=== PATIENT | female | born 1980 | race African-American/Black ===

== ENCOUNTER 2017-08-20 16:14 | Emergency (ER) | payer SELFPAY ==
[2017-08-20 16:44] LABS: #Basophils 0.1 thou/uL (0.0-0.2); #Eosinphils 0.3 thou/uL (0.0-0.7); #Lymphocytes 2.7 thou/uL (1.20-3.40); #Monocytes 0.8 thou/uL (0.11-0.59); #Neutrophils 3.2 thou/uL (1.40-6.50); %Basophils 1.9 % (0.0-1.0); %Eosinophils 4.4 % (0.0-10.0); %Monocytes 11.3 % (0.0-10.0); %Neutrophils 44.4 % (42.0-75.0); Hemoglobin 9.9 g/dL (12.0-16.0); Mean Corpuscular HGB CONC 31.4 g/dL (32.0-36.0); Mean Corpuscular Hemoglobin 27.1 pg (27.0-31.0); Mean Corpuscular Volume 86.3 fl (81.0-99.0); Mean Platelet Volume 7.8 fL (7.4-10.4); Platelet Count 290 thou/uL (130-400); RBC Distribution Width 16.8 % (11.5-14.5); Red Blood Cell (RBC) Count 3.65 mill/uL (4.20-5.40); White Blood Cell (WBC) Count 7.2 thou/uL (4.8-10.8)
[2017-08-20 17:02] LABS: BHCG - Serum Negative (NEGATIVE); Pregs Control Background? CLEAR/WHITE (CLR/WHITE); Pregs Control Bar Appear? YES (CONTROL BAR)
[2017-08-20 17:05] LABS: ALT (SGPT) 7 U/L (8-55); AST (SGOT) 9 U/L (5-34); Albumin 3.9 g/dL (3.5-5.0); Alkaline Phosphatase 46 U/L (40-150); Anion Gap 11 mmol/L (10-20); BUN (Urea Nitrogen) 6 mg/dL (7.0-18.7); Bilirubin, Total 0.4 mg/dL (0.2-1.2); Calc. Creatinine Clearance 0 mL/min (70-130); Calcium 8.8 mg/dL (7.8-10.44); Carbon Dioxide 23 mmol/L (22-29); Chloride 109 mmol/L (98-107); Estimated GFR-MDRD Greater than 90; Globulin 2.8 g/dL (2.4-3.5); Glucose 79 mg/dL (70-105); Potassium 3.5 mmol/L (3.5-5.1); Protein, Total 6.7 g/dL (6.0-8.3); Sodium 139 mmol/L (136-145)
[2017-08-20 17:09] LABS: Bilirubin Negative (Negative); Blood, Urine Negative (Negative); Clarity CLEAR (Clear); Glucose, Urine (Dipstick) Negative (Negative); Leukocyte Small (Negative); Nitrite Negative (Negative); Protein, Urine (Dipstick) Negative (Neg-Trace); Specific Gravity, Urine 1.007 (1.002-1.036); Urobilinogen 0.2 mg/dL (0.2-1.0); pH, Urine 6.5 (5.0-9.0)
[2017-08-20] MEDS ORDERED: Ondansetron HCl/PF 4 MG/2 ML Vial ONE (17:17)
[2017-08-20] MEDS ORDERED: Ketorolac Tromethamine 30 MG/ML VIAL ONE (17:17)
[2017-08-20 17:28] LABS: Bacteria/HPF None Seen HPF (None Seen); Hyaline Casts/LPF NONE SEEN LPF (0-3 Hyaline); RBC/HPF None Seen HPF (0-3); Squamous Epithelial None Seen HPF (0-3); WBC/HPF 0-3 HPF (0-3)
[2017-08-20 19:07] LABS: Medtox Reader # READER 1
[2017-08-20 19:08] LABS: Amphetamine Not Detected (NotDetected); Barbiturates Screen Not Detected (NotDetected); Benzodiazepine Screen Detected (NotDetected); Cocaine Metabolite Screen Not Detected (NotDetected); Medtox Control Line Valid? VALID (VALID); Methadone Not Detected (NotDetected); Methamphetamine Not Detected (NotDetected); Opiate Screen Not Detected (NotDetected); Oxycodone Screen Not Detected (NotDetected); Phencyclidine (PCP) Not Detected (NotDetected); THC/Cannabinoid Screen Detected (NotDetected); Tricyclic Screen Detected (NotDetected)
[2017-08-20] MEDS ORDERED: Dexamethasone 4 mg/ml Vial ONE (19:20)
== END 2017-08-20 20:16 | disposition home or self-care (01) ==
LOC: ERS 16:14
DX: J06.9 Acute upper respiratory infection, unspecified (principal); J45.909 Unspecified asthma, uncomplicated
CPT/HCPCS: 36415; 80053; 80306; 81003; 81015; 84703; 85025; 87804; 93005; 96361; 96374; 96375; J1100; J1885; J2405

== ENCOUNTER 2017-09-07 19:51 | Emergency (ER) | payer SELFPAY | END 2017-09-07 19:58 | disposition left against medical advice (07) | LOC: ERS 19:51 | DX: Z53.21 Procedure and treatment not carried out due to patient leaving prior to being seen by health care provider (principal) ==

== ENCOUNTER 2017-09-07 20:21 | Emergency (ER) | payer SELFPAY ==
[2017-09-07] MEDS ORDERED: Ketorolac Tromethamine 30 MG/ML VIAL ONE ×2 (20:54→21:26)
[2017-09-07 20:56] LABS: #Basophils 0.2 thou/uL (0.0-0.2); #Eosinphils 0.5 thou/uL (0.0-0.7); #Neutrophils 4.4 thou/uL (1.40-6.50); %Basophils 1.9 % (0.0-1.0); %Eosinophils 5.1 % (0.0-10.0); %Lymphocytes 33.3 % (21.0-51.0); %Monocytes 10.6 % (0.0-10.0); %Neutrophils 49.1 % (42.0-75.0); Hemoglobin 9.6 g/dL (12.0-16.0); Mean Corpuscular HGB CONC 30.8 g/dL (32.0-36.0); Mean Corpuscular Hemoglobin 25.8 pg (27.0-31.0); Mean Platelet Volume 8.4 fL (7.4-10.4); Platelet Count 253 thou/uL (130-400); RBC Distribution Width 17.2 % (11.5-14.5); Red Blood Cell (RBC) Count 3.71 mill/uL (4.20-5.40)
[2017-09-07 21:13] LABS: ALT (SGPT) 12 U/L (8-55); AST (SGOT) 16 U/L (5-34); Alkaline Phosphatase 61 U/L (40-150); Anion Gap 12 mmol/L (10-20); BUN (Urea Nitrogen) 9 mg/dL (7.0-18.7); Bilirubin, Total 0.2 mg/dL (0.2-1.2); Calc. Creatinine Clearance 0 mL/min (70-130); Calcium 8.7 mg/dL (7.8-10.44); Carbon Dioxide 23 mmol/L (22-29); Chloride 108 mmol/L (98-107); Estimated GFR-MDRD 73; Glucose 83 mg/dL (70-105); Lipase 30 U/L (8-78); Potassium 3.9 mmol/L (3.5-5.1); Sodium 139 mmol/L (136-145)
[2017-09-07 22:05] LABS: Pregnancy Test - Urine (BHCG) Negative (Negative); Pregu Control Background? CLEAR/WHITE (CLR/WHITE); Pregu Control Bar Appear? YES (CONTROL BAR); Specific Gravity 1.026 (1.002-1.036)
[2017-09-07 22:06] LABS: Bilirubin Small (Negative); Blood, Urine Small (Negative); Clarity Slightly Cloudy (Clear); Glucose, Urine (Dipstick) Negative (Negative); Leukocyte Trace (Negative); Nitrite Negative (Negative); Protein, Urine (Dipstick) Trace mg/dL (Neg-Trace); Specific Gravity, Urine 1.026 (1.002-1.036); Urobilinogen 0.2 mg/dL (0.2-1.0)
[2017-09-07 22:10] LABS: Bacteria/HPF 2+ HPF (None Seen); Hyaline Casts/LPF 0-3 HYALINE CAST LPF (0-3 Hyaline); Squamous Epithelial 0-3 HPF (0-3)
== END 2017-09-07 22:16 | disposition home or self-care (01) ==
LOC: SCSER 20:21
DX: N94.6 Dysmenorrhea, unspecified (principal); J45.909 Unspecified asthma, uncomplicated; F41.9 Anxiety disorder, unspecified; F17.210 Nicotine dependence, cigarettes, uncomplicated
CPT/HCPCS: 80053; 81003; 81015; 81025; 83690; 85025; 87077; 87086; 87186; 96372; 96374; J1885

== ENCOUNTER 2017-09-08 15:12 | Emergency (ER) | payer SELFPAY ==
[2017-09-08] MEDS ORDERED: Ketorolac Tromethamine 30 MG/ML VIAL ONE (15:57)
== END 2017-09-08 16:04 | disposition home or self-care (01) ==
LOC: ERS 15:12
DX: N94.6 Dysmenorrhea, unspecified (principal); F41.9 Anxiety disorder, unspecified; J45.909 Unspecified asthma, uncomplicated; F17.210 Nicotine dependence, cigarettes, uncomplicated
CPT/HCPCS: 96372; 99406; J1885

== ENCOUNTER 2018-01-25 20:52 | Emergency (ER) | payer SELFPAY ==
[2018-01-25 22:09] LABS: #Basophils 0.1 thou/uL (0.0-0.2); #Eosinphils 0.3 thou/uL (0.0-0.7); #Lymphocytes 3.7 thou/uL (1.20-3.40); #Monocytes 0.7 thou/uL (0.11-0.59); #Neutrophils 3.9 thou/uL (1.40-6.50); %Basophils 0.9 % (0.0-1.0); %Eosinophils 3.8 % (0.0-10.0); %Lymphocytes 42.3 % (21.0-51.0); %Monocytes 8.6 % (0.0-10.0); %Neutrophils 44.4 % (42.0-75.0); Mean Corpuscular HGB CONC 32.9 g/dL (32.0-36.0); Mean Corpuscular Hemoglobin 28.5 pg (27.0-31.0); Mean Corpuscular Volume 86.8 fL (78.0-98.0); Mean Platelet Volume 8.3 fL (7.4-10.4); Platelet Count 235 thou/uL (130-400); RBC Distribution Width 20.5 % (11.5-14.5); White Blood Cell (WBC) Count 8.7 thou/uL (4.8-10.8)
--- NOTE | 2018-01-25 23:32 | ULT ---
TRANSVAGINAL PELVIC ULTRASOUND: INDICATIONS: Concern for ovarian torsion. TECHNIQUE: Clay-scale, color Doppler, and vascular duplex with spectral analysis was performed of the pelvis. FINDINGS: The uterus measures 9.8 x 1.4 x 1.4 cm. The endometrial stripe measures 3.6 mm. The right ovary measures 3.2 x 2.7 x 2.6 cm. The left ovary measures 3.0 x 1.4 x 3.4 cm. There is n ormal flow to both ovaries. No free fluid is evident. IMPRESSION: Normal sonographic evaluation of the pelvis. No evidence of ovarian torsion by sonography. POS: [facility]
[2018-01-26 00:20] LABS: BHCG - Serum Negative (NEGATIVE); Pregs Control Background? CLEAR/WHITE (CLR/WHITE); Pregs Control Bar Appear? YES (CONTROL BAR)
== END 2018-01-26 00:37 | disposition home or self-care (01) ==
LOC: ERS 20:52
DX: R10.2 Pelvic and perineal pain (principal); J45.909 Unspecified asthma, uncomplicated; F41.9 Anxiety disorder, unspecified; F17.210 Nicotine dependence, cigarettes, uncomplicated
CPT/HCPCS: 76856; 84703; 85025; 86850; 86900; 86901; 93976; 96372; 96374

== ENCOUNTER 2018-08-03 09:51 | Emergency (ER) | payer SELFPAY ==
[2018-08-03] MEDS ORDERED: Ondansetron ODT 4 MG TAB ONE (10:48)
[2018-08-03 11:14] LABS: BHCG - Serum Negative (NEGATIVE); Pregs Control Background? CLEAR/WHITE (CLR/WHITE); Pregs Control Bar Appear? YES (CONTROL BAR)
== END 2018-08-03 11:44 | disposition home or self-care (01) ==
LOC: ERS 09:51
DX: R11.2 Nausea with vomiting, unspecified (principal); R19.7 Diarrhea, unspecified; R05 Cough; J45.909 Unspecified asthma, uncomplicated; F17.210 Nicotine dependence, cigarettes, uncomplicated; F41.9 Anxiety disorder, unspecified
CPT/HCPCS: 36415; 84703; 87804; 93005; Q0162

== ENCOUNTER 2018-08-10 11:26 | Emergency (ER) | payer SELFPAY ==
[2018-08-10] MEDS ORDERED: Ondansetron ODT 4 MG TAB ONE (12:38)
[2018-08-10] MEDS ORDERED: Ketorolac Tromethamine 60 MG/2 ML VIAL ONE (12:38)
== END 2018-08-10 13:11 | disposition home or self-care (01) ==
LOC: ERS 11:26
DX: N94.6 Dysmenorrhea, unspecified (principal); J45.909 Unspecified asthma, uncomplicated; F17.210 Nicotine dependence, cigarettes, uncomplicated
CPT/HCPCS: 96372; J1885; Q0162

== ENCOUNTER 2018-09-05 13:30 | Emergency (ER) | payer SELFPAY ==
[2018-09-05] MEDS ORDERED: HYDROcodone/Acetaminophen 5/325 mg Tablet ONE (14:38)
[2018-09-05] MEDS ORDERED: Clindamycin 150 MG CAP ONE (14:38)
[2018-09-05] MEDS ORDERED: Ibuprofen 800 MG TAB ONE (14:38)
[2018-09-05] MEDS ORDERED: Bacitracin Zinc 1 Packet ONE (14:39)
[2018-09-05] MEDS ORDERED: Lidocaine 1% w/Epinephrine 1:100K 20 ML VIAL ONE (14:39)
== END 2018-09-05 15:38 | disposition home or self-care (01) ==
LOC: SCSER 13:30
DX: L73.9 Follicular disorder, unspecified (principal); J45.909 Unspecified asthma, uncomplicated; F41.9 Anxiety disorder, unspecified; F17.210 Nicotine dependence, cigarettes, uncomplicated
CPT/HCPCS: 10061; J2001

== ENCOUNTER 2018-09-28 19:13 | Emergency (ER) | payer SELFPAY ==
--- NOTE | 2018-09-28 20:05 | RAD ---
CHEST ONE VIEW: 09/28/18 at 8:42 p.m. HISTORY: Cough, dyspnea. FINDINGS: The heart size is normal. The lungs are expanded without focal areas of consolidation, pneumothoraces or pleural effusions. IMPRESSION: No acute process. POS: [facility]
== END 2018-09-28 20:43 | disposition left against medical advice (07) ==
LOC: ERS 19:13
DX: Z53.21 Procedure and treatment not carried out due to patient leaving prior to being seen by health care provider (principal)
CPT/HCPCS: 71045; 94640; J7620